=== PATIENT | female | born 1945 | race Caucasian/White ===

== ENCOUNTER 2020-07-16 09:03 | Emergency (ER) | payer MEDICARE, BC ==
[~2020-07-16] VITALS: Ht 160 cm; Wt 63.5 kg
[2020-07-16 09:14] VITALS: BP 154/89
--- NOTE | 2020-07-16 09:24 | NUR ---
ED Nurse Note: Patient from home and walked in due to left forearm redness and swelling x 2 days due to possible insect bite. Denie sitching bit L arm with moderate swelling with no draining. AAO x4 and ambulatory.
[2020-07-16] MEDS ORDERED: MUPIROCIN22 GM TOPIC (09:30)
[2020-07-16] MEDS ORDERED: CLINDAMYCIN HC300 MG ORAL (09:30)
[2020-07-16] MEDS ORDERED: BENADRYL ITCH28.3 G1 TP (09:31)
[2020-07-16 09:36] VITALS: BP 147/80
--- NOTE | 2020-07-16 09:36 | NUR ---
ER DISCHARGE NOTE: Patient is cleared to be discharged per ERMD, pt is aox4, on room air, with stable vital signs. pt was given dc and prescription instructions, pt was able to verbalize understanding, pt id band removed. pt is able to ambulate with steady gait. pt took all belongings.
--- NOTE | 2020-07-16 09:46 | Emergency Room Report ---
History of Present Illness General Chief Complaint: Animal Bite Source: Patient Present Illness HPI Patient presents to the emergency department today complaining of insect bite to the left upper extremity. Patient complains of redness and swelling in that extremity for the last couple of days since the bite. Patient denies any discharge. Denies any trauma. States that it feels warm and slightly tender an d very pruritic. No other complaints are noted. Symptoms noted to be moderate. No other modifying factors. No other associated signs and symptoms. No other complaints were noted. 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 Patient History Past Medical History: none Past Surgical History: none Pertinent Family History: none Social History: Denies: smoking, alcohol use, drug use Reviewed Nursing Documentation: PMH: Agreed; PSxH: Agreed Nursing Documentation-PMH Past Medical History: No History, Except For Hx Seizures: No - hyperthyroid, hypercholesterolemia Review of Systems All Other Systems: negative except mentioned in HPI Physical Exam Vital Signs Date Time Temp Pulse Resp B/P (MAP) Pulse Ox O2 Delivery O2 Flow Rate FiO2 07/16/20 09:14 98.2 69 18 154/89 (110) 96 Room Air Sp02 EP Interpretation: reviewed, normal General Appearance: normal inspection, well appearing, no apparent distress, alert Head: atraumatic Eyes: bilateral eye normal inspection ENT: normal ENT inspection, hearing grossly normal, normal voice Neck: normal inspection, full range of motion, supple, no bony tend Respiratory: normal inspection, lungs clear, normal breath sounds, no respiratory distress, no retraction, no wheezing Cardiovascular #1: regular rate, rhythm, no edema Gastrointestinal: normal inspection, normal bowel sounds, non tender, soft, no guarding, no hernia Genitourinary: no CVA tenderness Musculoskeletal: back normal, normal range of motion, swelling - Left upper extremity. Near the forearm where there is a bite. No abscess noted. Surrounding erythema tenderness. No evidence of fluctuance. Neurologic: alert, responsive, speech normal, normal inspection Psychiatric: normal inspection, judgement/insight normal, mood/affect normal Skin: other - Cellulitis left forearm. Medical Decision Making Diagnostic Impression: Primary Impression: Cellulitis ER Course Patient presents to the emergency department today complaining of cellulitis. Patient sustained a bug bite to the left upper extremity. It appears to be getting more swollen red and tender. Differential diagnosis include allergic reaction, cellulitis, abscess just to name a few. Patient's exam is consistent with likely infected insect bite. This likely is explaining the cellulitis. Will provide prescription for clindamycin and topical Bactroban. Patient is advised to follow up with primary doctor in 2-3 days and return the emergency room for any worsening symptoms and as needed. Last Vital Signs Date Time Temp Pulse Resp B/P (MAP) Pulse Ox O2 Delivery O2 Flow Rate FiO2 07/16/20 09:36 98.1 74 20 147/80 97 Room Air Status: unchanged Disposition: HOME, SELF-CARE Condition: Stable Scripts Diphenhydramine Hcl/Zinc Acet (BENADRYL ITCH STOPPING CRM) 28.3 Gm Cream..g. 28.3 GM TP QID for itch for 7 Days, GM Prov: Darion Bustos MD 07/16/20 Mupirocin* (MUPIROCIN*) 22 Gm Oint...g. 1 APPLIC TOPIC THREE TIMES A DAY for 7 Days, GM Prov: Darion Bustos MD 07/16/20 Clindamycin Hcl (CLINDAMYCIN HCL) 300 Mg Capsule 300 MG ORAL TID for 7 Days, CAP Prov: Darion Bustos MD 07/16/20 Patient Instructions: Cellulitis, [id number] Darion Bustos MD Jul 16, 2020 09:46
== END 2020-07-16 09:36 | disposition home or self-care (01) ==
LOC: EMR 09:24
DX: L03.114 Cellulitis of left upper limb (principal); S50.862A Insect bite (nonvenomous) of left forearm, initial encounter; W57.XXXA Bitten or stung by nonvenomous insect and other nonvenomous arthropods, initial encounter; Y92.9 Unspecified place or not applicable; E78.00 Pure hypercholesterolemia, unspecified
CPT/HCPCS: 99282

== ENCOUNTER 2020-12-07 09:42 | Emergency (ER) | payer MEDICARE, BC ==
[~2020-12-07] VITALS: Ht 152.4 cm; Wt 56.7 kg
[~2020-12-07 09:42] MED LIST: BENADRYL ITCH28.3 G1 TP; CLINDAMYCIN HC300 MG ORAL; MUPIROCIN22 GM TOPIC
[2020-12-07 09:57] VITALS: BP 172/74
--- NOTE | 2020-12-07 09:57 | NUR ---
came to er complaints she had high blood pressure at home bp 180/,90 no hx of htn patient is here for evaluation no complaints at this time
[2020-12-07] MEDS ORDERED: CEPHALEXIN500 M1 ORAL (10:04)
--- NOTE | 2020-12-07 10:04 | Emergency Room Report ---
History of Present Illness General Chief Complaint: General Complaint Source: Patient Present Illness HPI 75-year-old female history of high cortisol presents with bilateral facial flushing warmth pain severity is mild, constant patient also checked her blood pressure and it was high in the 170s patient denies any nausea vomiting chest pain shortness of breath headache facial pain, dyspnea on exertion kumar review of systems is completely negative. Patient was concerned due to the blood pressure number Allergies: Coded Allergies: No Known Allergies (Unverified , 07/16/20) COVID-19 Screening Contact w/high risk pt: No Recent Travel to affected area: No Experienced COVID-19 symptoms?: No COVID-19 Testing performed NIGHTMAN: No Patient History Past Medical History: see triage record Now: No Reviewed Nursing Documentation: PMH: Agreed; PSxH: Agreed Nursing Documentation-PMH Hx Seizures: No - hyperthyroid, hypercholesterolemia Review of Systems All Other Systems: negative except mentioned in HPI Physical Exam Vital Signs Date Time Temp Pulse Resp B/P (MAP) Pulse Ox O2 Delivery O2 Flow Rate FiO2 12/07/20 09:48 97.9 78 18 172/74 (106) 97 Room Air General Appearance: well appearing, no apparent distress Head: normocephalic, atraumatic Eyes: bilateral eye PERRL, bilateral eye EOMI ENT: hearing grossly normal, normal voice Neck: full range of motion, supple Respiratory: no respiratory distress, speaking full sentences Neurologic: alert, normal gait Psychiatric: mood/affect normal Skin: no rash, rash - Bilateral face redness, no pain, warmth noted Medical Decision Making Diagnostic Impression: Primary Impression: Erysipelas Additional Impression: Hypertension Qualified Codes: I10 - Essential (primary) hypertension ER Course 75-year-old female presents with facial flushing patient does report getting a steroid injection 2 days ago differential includes reaction to steroids, possible erysipelas will provide patient with Keflex Patient with asymptomatic hypertension no treatment indicated currently blood pressure is downtrending to 160 systolic Disposition home with return precautions follow-up with PCP Last Vital Signs Date Time Temp Pulse Resp B/P (MAP) Pulse Ox O2 Delivery O2 Flow Rate FiO2 12/07/20 09:57 97.9 18 172/74 97 Room Air 12/07/20 09:57 78 Disposition: HOME, SELF-CARE Condition: Stable Scripts Cephalexin* (KEFLEX*) 500 Mg Tablet 500 MG ORAL EVERY 6 HOURS for 10 Days, #40 CAP Prov: Tom Zavaleta MD 12/07/20 Referrals: NON PHYSICIAN (PCP) [facility]. [facility] Patient Instructions: Shayan Additional Instructions: The patient was provided with discharge instructions, notified to follow-up with a primary care doctor and or specialist in the next 24-48 hours, and to return to the ED if they have worsening of their symptoms. Please note that this report is being documented using eCurv technology. This can lead to erroneous entry secondary to incorrect interpretation by the dictating instrument. Tom Zavaleta MD Dec 07, 2020 10:04
[2020-12-07 10:11] VITALS: BP 139/74
[2020-12-07 10:13] VITALS: BP 139/74
--- NOTE | 2020-12-07 10:14 | NUR ---
discharged home with instruction and rx follow up with pmd patient and family verbalize understanding
== END 2020-12-07 10:15 | disposition home or self-care (01) ==
LOC: EMR 09:57
DX: A46 Erysipelas (principal); I10 Essential (primary) hypertension; E05.90 Thyrotoxicosis, unspecified without thyrotoxic crisis or storm; E78.00 Pure hypercholesterolemia, unspecified
CPT/HCPCS: 99282